=== PATIENT | female | born 1950 | race Two or more races ===

== ENCOUNTER 2023-09-26 07:56 | Emergency (ER) | payer OTHER ==
[~2023-09-26] VITALS: Ht 157.5 cm; Wt 72.6 kg
[~2023-09-26 07:56] MED LIST: OSEL75CA PO
[2023-09-26] MEDS ORDERED: CLONAZEPAM0.5 M1 PO (08:07)
[2023-09-26] MEDS ORDERED: [UNRECOGNIZED DRUG - OTHER] (08:08)
== END 2023-09-26 12:59 | disposition home or self-care (01) ==
LOC: ER 07:56
DX: S01.02XA Laceration with foreign body of scalp, initial encounter (principal); W18.39XA Other fall on same level, initial encounter; Y93.89 Activity, other specified; Y92.091 Bathroom in other non-institutional residence as the place of occurrence of the external cause
CPT/HCPCS: 12004; 70450; 90471; 90714; J1670

== ENCOUNTER 2023-10-04 09:53 | Emergency (ER) | payer OTHER ==
[~2023-10-04] VITALS: Ht 157.5 cm; Wt 54.4 kg
[~2023-10-04 09:53] MED LIST changes: +CLONAZEPAM0.5 M1 PO; +[UNRECOGNIZED DRUG - OTHER]
[2023-10-04] MEDS ORDERED: TEMAZEPAM15 MG PO (10:11)
[2023-10-04] MEDS ORDERED: SEROQUEL XR50 MG PO (10:12)
[2023-10-04 10:59] LABS: CALCIUM 9.4 mg/dL (8.5-10.1); CREATININE SERUM 1.03 mg/dL (0.55-1.02); GFR 52.38; POTASSIUM 4.12 mEq/L (3.5-5.1)
[2023-10-04 11:02] LABS: HEMATOCRIT 37.1 % (36.0-45.00); HEMOGLOBIN 12.3 g/dL (12.0-15.00); MEAN CELL VOLUME 86.2 fL (80.00-100.00); MEAN CORPUSCULAR HEMOGLOBIN 28.7 pg (27.00-32.0); MEAN CORPUSCULAR HGB CONC 33.3 g/dl (32.0-36.0); PLATELET COUNT 264 K/uL (150-450); RED BLOOD COUNT 4.31 M/uL (4.00-6.00); RED CELL DISTRIBUTION WIDTH 13.8 % (11.5-14.5)
[2023-10-04 11:36] LABS: URINE APPEARANCE Cloudy; URINE BILIRRUBIN Negative (NEGATIVE); URINE BLOOD NHT; URINE COLOR Yellow; URINE GLUCOSE Negative (NEGATIVE); URINE LEUKOCYTE Trace; URINE NITRATE Negative; URINE PROTEIN 30 (NEGATIVE)
[2023-10-04 11:40] LABS: URINE EPITHELIAL CELLS 25.6 uL (0.0-38.8); URINE RBC 33.6 uL (0.0-20.8)
[2023-10-04 11:58] LABS: URINE WBC 41.1 uL (0.0-23.2)
== END 2023-10-04 14:34 | disposition home or self-care (01) ==
LOC: ER 09:53
PROVIDERS: Emergency Medicine
DX: S06.5XAA Traumatic subdural hemorrhage with loss of consciousness status unknown, initial encounter (principal); W19.XXXA Unspecified fall, initial encounter; Y93.9 Activity, unspecified; Y92.89 Other specified places as the place of occurrence of the external cause; Y99.9 Unspecified external cause status; G30.9 Alzheimer's disease, unspecified; F02.80 Dementia in other diseases classified elsewhere, unspecified severity, without behavioral disturbance, psychotic disturbance, mood disturbance, and anxiety; Z91.018 Allergy to other foods